=== PATIENT | male | born 1990 | race Caucasian/White ===

== ENCOUNTER 2024-05-22 13:08 | Emergency (ER) | payer SELFPAY ==
[~2024-05-22] VITALS: Ht 172.7 cm; Wt 111.2 kg
[2024-05-22] MEDS ORDERED: ZYRTEC10 M3 PO (13:41)
[2024-05-22 13:42] LABS: BASO # 0.02 K/mm3 (0.02-0.10); EOS # 0.12 K/mm3 (0.04-0.40); EOS % 1.8 % (0.0-4.0); HEMOGLOBIN 14.8 g/dL (13.5-18.0); LYMPH# 1.74 K/mm3 (1.50-4.00); MEAN CELL VOLUME 84 fl (78-100); MEAN CORPUSCULAR HEMOGLOBIN 27 pg (27-31); MEAN CORPUSCULAR HGB CONC 32 g/dL (33-37); MEAN PLATELET VOLUME 9.2 fl (7.4-10.4); MONO # 0.82 K/mm3 (0.20-0.80); NEU # 3.94 K/mm3 (1.40-6.50); PLATELET COUNT 296 K/mm3 (130-400); RED BLOOD COUNT 5.47 M/mm3 (4.20-5.60); WHITE BLOOD COUNT 6.6 K/mm3 (4.8-10.8)
[2024-05-22 13:51] LABS: ALBUMIN 4.8 g/dL (3.5-5.0)
[2024-05-22 13:52] LABS: CALCIUM 10.3 mg/dL (8.3-10.5)
[2024-05-22 13:53] LABS: TOTAL PROTEIN 7.8 g/dL (6.4-8.3)
[2024-05-22 13:55] LABS: TOTAL BILIRUBIN 0.7 mg/dL (0.2-1.2)
[2024-05-22] MEDS ORDERED: LOSARTAN POTASS25 MG PO (14:44)
[2024-05-22] MEDS ORDERED: Losartan 25 MG TAB PO ONE (14:45)
[2024-05-22 15:12] VITALS: BP 155/108
== END 2024-05-22 15:36 | disposition home or self-care (01) ==
LOC: ED 13:08
PROVIDERS: Family Medicine
DX: R00.0 Tachycardia, unspecified (principal); R03.0 Elevated blood-pressure reading, without diagnosis of hypertension; R94.31 Abnormal electrocardiogram [ECG] [EKG]
CPT/HCPCS: J7120